=== PATIENT | male | born 1960 | race Caucasian/White ===

== ENCOUNTER 2022-05-25 11:53 | Day surgery (SDC) | payer OTHER, SELFPAY ==
--- NOTE | 2022-05-24 12:21 | P.CONAN_ITS ---
Documented by User: Sammie Cisneros NP 05/24/22 12:22 HPI - Anesthesia Eval Consult details Narrative: 62yo M for Colonoscopy [facility] Past Medical History Medical History (Updated 05/24/22 @ 12:16 by Chula Mckeon RN) Anxiety Gastritis GERD (gastroesophageal reflux disease) HTN (hypertension) SAURABH on CPAP Seasonal allergic rhinitis Tubular adenoma Surgical History Surgical History (Updated 05/24/22 @ 12:16 by Chula Mckeon RN) H/O colonoscopy H/O esophagogastroduodenoscopy Social History Social History Patient Tobacco Use Status: Never used Tobacco Use of substances other than those prescribed or required for medical reasons: No Are you DNR?: No Advance Directives: No Advance Directives Information Provided: Yes Meds Allergies Allergy/AdvReac Type Severity Reaction Status Date / Time No Known Allergies Allergy Unverified 03/12/20 15:33 Home Medications Medication Instructions Recorded Confirmed Last Taken Type ergocalciferol (vitamin D2) 1,250 1 cap PO QWEEK 05/24/22 05/24/22 Unknown History mcg (50,000 unit) capsule lisinopril 20 mg tablet 1 tab PO DAILY 05/24/22 05/24/22 05/25/22 History meclizine 25 mg tablet 1 tab PO TID PRN dizziness 05/24/22 05/24/22 Unknown History paroxetine HCl 20 mg tablet 1 tab PO QAM 05/24/22 05/24/22 05/25/22 History Exam Exam Date and Time: May 24, 2022 1221 Assessment and Plan Assessment Anesthesia Assessment: Chart Reviewed Documented by User: Casa Elise MD 05/25/22 16:08 [facility] Past Medical History Medical History (Updated 05/24/22 @ 12:16 by Chula Mckeon RN) Anxiety Gastritis GERD (gastroesophageal reflux disease) HTN (hypertension) SAURABH on CPAP Seasonal allergic rhinitis Tubular adenoma Family History Family history of problems with anesthesia: Yes (Ponv in mother . ) Surgical History Surgical History (Updated 05/24/22 @ 12:16 by Chula Mckeon RN) H/O colonoscopy H/O esophagogastroduodenoscopy History of Problems with Anesthesia: No Social History Social History Patient Tobacco Use Status: Never used Tobacco Use of substances other than those prescribed or required for medical reasons: No Are you DNR?: No Advance Directives: No Advance Directives Information Provided: Yes Meds Allergies Allergy/AdvReac Type Severity Reaction Status Date / Time No Known Allergies Allergy Unverified 03/12/20 15:33 Home Medications Medication Instructions Recorded Confirmed Last Taken Type ergocalciferol (vitamin D2) 1,250 1 cap PO QWEEK 05/24/22 05/24/22 Unknown History mcg (50,000 unit) capsule lisinopril 20 mg tablet 1 tab PO DAILY 05/24/22 05/24/22 05/25/22 History meclizine 25 mg tablet 1 tab PO TID PRN dizziness 05/24/22 05/24/22 Unknown History paroxetine HCl 20 mg tablet 1 tab PO QAM 05/24/22 05/24/22 05/25/22 History Exam Airway Mallampati Class: III TM Dist: >3cm Neck ROM: Full Loose/Missing/Broken Teeth: Yes Heart: S1,S2 Lungs: b/l breath sounds Assessment and Plan Assessment Anesthesia Assessment: Anesthesia Plan Discussed Final Anesthetic Review Family History of Problems with Anesthesia: Yes (Ponv in mother . ) History of Problems with Anesthesia: No NPO: Yes ASA Class: III Final Preanesthetic Review: Meds/Allgs Chart Reviewed, Consent Obtained/Reviewed and Anes Risks/Benef Reviewed Patient Risk: Intermediate Procedure Risk: Intermediate Anesthetic Plan Anesthetic Plan: MAC: Disposition: Standard PACU
[2022-05-25 12:14] VITALS: PULSE 66; RESP 18; TEMP 36.7; O2SAT 96; BMI 33.7
[2022-05-25] MEDS: Lactated Ringers 1,000 ML 100 ML IVCONT (12:37)
--- NOTE | 2022-05-25 13:12 | P.HPSUR_ITS ---
Pre-Procedural Eval Section A Date of Service: 05/25/22 Section B Chief Complaint: Encounter for screening for malignant neoplasm of Details of Present Illness: see H&P no changes Relevant Family History (Specify if Yes): No Relevant Social History: None Present Medications: see Short Stay Collaborative assessment Medical History: No relevant PMH History of Previous Operations: No relevant previous surgery Allergies: Allergies Allergy/AdvReac Type Severity Reaction Status Date / Time No Known Allergies Allergy Unverified 03/12/20 15:33 Review of Systems Sugical H&P ROS: Negative: Constitution, Cardiovascular, Respiratory, Neuro logical, Psychiatric, Hem-Onc, Allergic/Immunologic, Gastrointestinal, Genitourinary, Musculoskeletal, Integumentary, Endocrine and Eyes/Ears/Nose/Throat Exam Surgical H&P Exam: Normal: HEENT, Normal: Heart, Normal: Lungs, Normal: Extremities, Normal: Abdomen, Normal: Skin and Normal: Neurological Plan Diagnosis/Plan: Unchanged I have reviewed the history and physical and performed a pertinent physical examination on my patient. No changes have occurred unless specified.
--- NOTE | 2022-05-25 13:46 | PM.OP ---
Brief Operative Note Date of Service: 05/25/22 Pre-op diagnosis: screening Post-op diagnosis: same Surgeon: Major Coulter Anesthesia: MAC Was an [employer] used for this Procedure?: No Estimated blood loss (mL): 2 Pathology: other Condition: stable Disposition: PACU
[2022-05-25 13:48] VITALS: BP 90/47; PULSE 68; RESP 16; TEMP 37.2; O2SAT 95
[2022-05-25 14:04] VITALS: BP 102/58; PULSE 60; RESP 16; TEMP 36.8; O2SAT 95
[2022-05-25 14:19] VITALS: BP 115/66; PULSE 59; RESP 16; TEMP 36.6; O2SAT 96
--- NOTE | 2022-05-26 01:33 | OP_ITS ---
SURGEON: Major Coulter MD INDICATIONS: Colon cancer screening. PREOPERATIVE DIAGNOSIS: POSTOPERATIVE DIAGNOSIS: PROCEDURE PERFORMED: Colonoscopy to the terminal ileum with snare polypectomy. ESTIMATED BLOOD LOSS: COMPLICATIONS: ANESTHESIA: Monitored anesthesia care. ASSISTANTS: SPECIMENS: PROCEDURE DESCRIPTION: History and physical were performed. The risks and benefits of the procedure were explained to the patient. The procedure was performed on 05/25/2022. A digital rectal exam was performed and was found to be normal. The Olympus pediatric video colonoscope was introduced into the rectum and advanced to the cecum without difficulty. The cecum was identified by transillumination, palpation, and identification of ileocecal valve. Examination was performed. The scope was removed. He tolerated the procedure well and was taken to recovery room in stable condition. FINDINGS: The terminal ileum was examined and appeared normal. Visualized colonic mucosa was normal. The quality of the prep was good. Two polyps were identified. Both measured less than 10 mm and were removed with a snare. No other polyps were identified. Retroflexed examination showed small internal hemorrhoids. IMPRESSION: Colon polyps. RECOMMENDATIONS: Follow up the biopsy results. MD RIVER Ryan/ÁNGELA / [id number]
== END 2022-05-25 15:44 | disposition home or self-care (01) ==
PROVIDERS: PCP Internal Medicine; Visit Provider Internal Medicine Gastroenterology
PROC: 0DJD8ZZ Inspection of Lower Intestinal Tract, Via Natural or Artificial Opening Endoscopic (ICD-10-PCS; CPT 45378; principal; 2022-05-25 13:00)
DX: Z12.11 Encounter for screening for malignant neoplasm of colon (principal); Z86.010 Personal history of colon polyps; D12.4 Benign neoplasm of descending colon; K63.5 Polyp of colon; K64.8 Other hemorrhoids; K21.9 Gastro-esophageal reflux disease without esophagitis; J30.2 Other seasonal allergic rhinitis; G47.33 Obstructive sleep apnea (adult) (pediatric); I10 Essential (primary) hypertension; Z79.899 Other long term (current) drug therapy; Z90.49 Acquired absence of other specified parts of digestive tract
CPT/HCPCS: 45385; 88305